=== PATIENT | female | born 1980 | race Caucasian/White ===

== ENCOUNTER → 2018-07-17 | Outpatient (CLI) | payer OTHER ==
[~2018-07-17] MED LIST: NUVARING VAGIN1 EACH; PERCOCET 5-3251 EACH PO
== END ==
LOC: ULTRA 11:01
DX: R10.11 Right upper quadrant pain (principal)

== ENCOUNTER → 2019-05-13 | Outpatient (CLI) | payer OTHER | LOC: RAD 11:27 | DX: M41.86 Other forms of scoliosis, lumbar region (principal); Z97.5 Presence of (intrauterine) contraceptive device ==

== ENCOUNTER → 2019-05-22 | Outpatient (CLI) | payer OTHER ==
[~2019-05-22] MED LIST changes: +MELATONIN10 M3 PO; +TRAMADOL 50 MG50 MG PO; +XANAX 0.5 MG0.5 M1 PO
== END ==
LOC: MRI 10:08
DX: M51.36 Other intervertebral disc degeneration, lumbar region (principal); M51.26 Other intervertebral disc displacement, lumbar region; M48.061 Spinal stenosis, lumbar region without neurogenic claudication; M51.37 Other intervertebral disc degeneration, lumbosacral region; M12.88 Other specific arthropathies, not elsewhere classified, other specified site

== ENCOUNTER → 2019-06-11 | Outpatient (CLI) | payer OTHER ==
[~2019-06-11] VITALS: Ht 170.2 cm; Wt 72.6 kg
[2019-06-11 14:41] VITALS: BP 122/78
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
== END ==
LOC: PAIN 12:57
DX: G62.9 Polyneuropathy, unspecified (principal); K21.9 Gastro-esophageal reflux disease without esophagitis; F41.9 Anxiety disorder, unspecified

== ENCOUNTER → 2020-06-23 | Outpatient (CLI) | payer OTHER | LOC: ULTRA 10:13 | PROVIDERS: ATTEND Nurse Practitioner | DX: R10.9 Unspecified abdominal pain (principal); Z90.49 Acquired absence of other specified parts of digestive tract ==